=== PATIENT | female | born 1950 | race African-American/Black ===

== ENCOUNTER 2017-09-11 13:12 | Emergency (ER) | payer BC, MEDICARE ==
[~2017-09-11] VITALS: Ht 160 cm; Wt 65.0 kg
[2017-09-11] MEDS ORDERED: ALBUTEROL/IPRATROPIUM 2.5MG/0.5MG, 3 ML ONE ×2 (14:17→15:41)
[2017-09-11] MEDS ORDERED: PLEASE ENTER ALLERGIES MC SCH (14:30)
[2017-09-11] MEDS ORDERED: ALBUTEROL/IPRATROPIUM 2.5MG/0.5MG, 3 ML NPPB ONE ×2 (14:30→15:30)
[2017-09-11 17:32] VITALS: BP 133/79
== END 2017-09-11 17:34 | disposition home or self-care (01) ==
LOC: ED 15:29
DX: J45.41 Moderate persistent asthma with (acute) exacerbation (principal); I10 Essential (primary) hypertension
CPT/HCPCS: 93005; 94640; 99284; J7512; J7620